=== PATIENT | female | born 1950 | race Caucasian/White ===

== ENCOUNTER 2017-04-16 05:15 | Inpatient (IN) | payer OTHER, MEDICARE ==
--- NOTE | 2017-04-15 12:50 | MH ---
cc: BHARGAVI HENDRICKSON DATE OF ADMISSION: 04/16/2017 ADMITTING DIAGNOSIS 1. Osteoarthritis of the left knee 2. Pain left knee HISTORY OF PRESENT ILLNESS The patient is a 66-year-old white female who has experienced pain of her left knee of greater than six years duration. She had noted the gradual onset of her symptoms unrelated to injury or unusual activity. She had undergone previous evaluation and treatment in the [place], [place] area which did include arthroscopic surgery. The patient reports that at that time her treatment included removal of a bone fragment from her left knee as well as being diagnosed as having an arthritic condition and potentially being a candidate for future total knee replacement. Follow up treatment did include at least one injection to her knee with no further disposition being completed. The patient thereafter continued to conform to conservative management alternating between Aleve and Motrin for pain management. With the passage of time, she became progressively more symptomatic with pain that became more of a constant discomfort involving the anterior aspect of her left knee with associated swelling for which she was having difficulty conforming to any extended weightbearing activities. She presented to the undersigned physician in February of this past year and, at that time, her x-ray studies did reveal obvious degenerative changes with pronounced narrowing throughout the medial compartment. Findings and treatment options were reviewed with the patient at that time. The pros and cons of continued conservative management versus operative intervention that would involve total knee arthroplasty were outlined. Emphasis was made regarding the fact that the decision to proceed with surgery would be left entirely to the patient's discretion. The patient readily admitted that she felt she had exhausted all modes of conservative management and was ready to proceed with a more definitive course of treatment as related to total knee replacement. She subsequently underwent medical evaluation and clearance by her primary care physician and returned to the office in follow-up disposition indicating her desire to proceed with treatment as had previously been discussed. In compliance with her wishes, she has currently been scheduled for admission in order that total knee arthroplasty be accomplished. PAST MEDICAL HISTORY, HOSPITALIZATIONS AND SURGERIES 1. Surgical excision of a lipoma of her right upper extremity. 2. Arthroscopic surgery of her left knee as described 3. Lumpectomy of the left breast x2 for a cancerous condition followed by radiation therapy. 4. Dupuytren's contracture release of the left hand 5. Removal of a fibroid mass of the right hand 6. Tonsillectomy, 7. Total abdominal hysterectomy, 8. Laparoscopic cholecystectomy, 9. Bilateral cataract excision, 10. Left vitrectomy 11. Colonoscopy 12. Medical management for diverticulitis. 13. Pneumonia and pleurisy of her left lung. Medical illnesses include 1. Borderline diabetes, 2. Migraine headaches 3. Hypertension. 4. History of sleep apnea but does not use C-PAP MEDICATIONS Current medications 1. Glimepiride 4 mg daily. 2. Paxil 20 mg daily. 3. Enalapril 20 mg twice daily. 4. Pravastatin 20 mg daily. 5. Citrical with D3 three times per week. 6. Vitamin C daily, 7. [place] three daily. 8. An antibiotic for a vaginal and rectal infection. ALLERGIES NALFON - CAUSED A HIVES LIKE REACTION TETRACYCLINE - CAUSED GASTRIC IRRITATION REVIEW OF SYSTEMS She wears glasses for reading purposes. There is a positive history of migraine headaches. No seizure or syncope. No sinus congestion. No epistaxis. Auditory acuity intact. No tinnitus. No bleeding gums or dysphagia. Denies cough, shortness of breath, upper respiratory infection. There is a history of pneumonia and pleurisy. No angina. She is medically managed for hypertension. Her appetite is good. bowel movements are regular. No hepatitis. She is status post cholecystectomy. No ulcers. No hemorrhoids. No urinary tract infection. No kidney stones. Fracture of the left little finger, right wrist and right foot all treated nonoperatively. No psychiatric illness. Her remaining review of systems is unremarkable and noncontributory. FAMILY HISTORY The patient has habitated with a significant other for more than 30 years and being 71 years of age and in good health. She has no children. Her family history is otherwise positive for hypertension, diabetes, congestive heart failure, asbestosis, obesity and breast and colon cancer. 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 She completed a bachelor's degree in elementary education. Denies active use of tobacco, ethanol consumption on a rare occasion. PHYSICAL EXAMINATION VITAL SIGNS: Height 5 feet 2 inches, weight 173 pounds. An alert, oriented and responsive 66-year-old white female who sits quietly upon the examination table with no obvious distress. HEENT: Pupils are equally round and reactive to light. Extraocular movements full. Sclerae clear. External nares clear. External auditory canals clear. Dental intact. Mucous membranes pink and moist. Pharynx clear. NECK: Supple. There is slight limitation of mobility at the extremes of rotation more pronounced to the left side that the patient indicates being chronic in nature. Carotid pulse palpable bilaterally. Trachea midline. Thyroid without enlargement. LUNGS: Clear to auscultation and percussion. No CVA tenderness. No discomfort throughout the dorsal lumbar spine. HEART: Regular rhythm. No murmur or gallop. ABDOMEN: Soft, nontender. Bowel sounds present. PELVIC: Per primary care physician. EXTREMITIES: Left knee - There is a mild fullness about the knee consistent with redundancy of soft tissue. No appreciable intra-articular effusion. Medial joint line tenderness. Apprehension and compression sign negative. Limited mobility towards the extremes of flexion without significant crepitation associated, no collateral ligamentous instability. Liu test and drawer sign negative. Pivot shift and Kaylah sign positive for medial compartment pain. Straight-leg raising unremarkable at 80 degrees, satisfactory mobility of the left hip with no associated pain. Mild antalgic gait. NEUROLOGIC: Cranial nerves II-XII grossly intact. IMPRESSION 1. Osteoarthritis of the left knee 2. Pain left knee PLAN Left total knee arthroplasty. The nature of the planned surgical procedure, the potential complications and risks associated, the expectations of surgery and the consent form were thoroughly reviewed with the patient in the presence of her sister prior to admission to the hospital. Rachel has indicated her full understanding regarding all of the above and given consent to proceed with treatment as outlined. Medical evaluation and clearance for surgery will be completed by her primary care physician at the [facility]. MD KARINA Davis/SA /4:44 PM /12:33 PM
[~2017-04-16] VITALS: Ht 157.5 cm; Wt 78.2 kg
[2017-04-16] MEDS ORDERED: ceFAZolin 2 GM PREMIX 50 ML IV SCH (05:45)
[2017-04-16] MEDS ORDERED: SODIUM CHLORID 0.9% 500 ML IV PRN (05:45)
[2017-04-16] MEDS ORDERED: POVIDONE IODINE 7.5% SCRUB 118 ML BOTTLE TOPICAL SCH (05:45)
[2017-04-16] MEDS ORDERED: POVIDONE IODINE 5% (ANTISEPSIS KIT) 4 APPLICATIONS EACH NARE PRN (05:45)
[2017-04-16] MEDS ORDERED: METOPROLOL TARTRATE 25 MG TAB PO PRN (05:45)
[2017-04-16] MEDS ORDERED: CHLORHEXIDINE GLUCONATE 2 % 1 PACK (2 CLOTHS) TOPICAL PRN (05:45)
[2017-04-16] MEDS ORDERED: LACTATED RINGER'S 1000 ML IV PRN (05:45)
[2017-04-16] MEDS ORDERED: ceFAZolin INJ 1,000 MG VIAL ONE ×2 (06:17→14:03)
[2017-04-16] MEDS ORDERED: CITRTAB7 PO (06:22)
[2017-04-16] MEDS ORDERED: PRAV20TA2 PO (06:22)
[2017-04-16] MEDS ORDERED: ENAL20TA PO (06:22)
[2017-04-16] MEDS ORDERED: VITA250T3 PO (06:22)
[2017-04-16] MEDS ORDERED: PAXI10TA8 PO (06:22)
[2017-04-16] MEDS ORDERED: OMEGCAP PO (06:22)
[2017-04-16] MEDS ORDERED: AMOX500T PO (06:22)
[2017-04-16] MEDS ORDERED: GLIM4TAB PO (06:22)
[2017-04-16] MEDS ORDERED: ACETAMINOPHEN 1000 MG/100 ML 100 ML IV ONE (06:31)
[2017-04-16] MEDS ORDERED: MIDAZOLAM HCL 2 MG/2 ML VIAL ONE (06:31)
[2017-04-16] MEDS ORDERED: FAMOTIDINE 20 MG/2 ML VIAL ONE (06:40)
[2017-04-16] MEDS ORDERED: TRANEXAMIC ACID 1 GM PRIOR TO PROCEDURE IV SCH ×2 (07:00)
[2017-04-16] MEDS ORDERED: HYDROmorphone HCL PF 2 MG/ML VIAL ONE (07:57)
[2017-04-16] MEDS ORDERED: BUPIVACAINE LIPOSOME PF 1.3% 20 ML VIAL ONE (08:57)
[2017-04-16] MEDS ORDERED: DEXT 5%-NACL 0.45% 1000 ML INJ 1,000 ML IV SCH (09:19)
[2017-04-16] MEDS ORDERED: DO NOT ADM ANY ANTICOAGULANT DRUGS PRN (09:24)
[2017-04-16] MEDS ORDERED: TRANEXAMIC ACID INJ 1,000 MG in SODIUM CHLORIDE 0.9% INJ 100 ML IV SCH (09:30)
[2017-04-16] MEDS ORDERED: TRANEXAMIC ACID 1 GM POST-OP IV SCH ×2 (10:00)
--- NOTE | 2017-04-16 10:35 | RADRPT ---
EXAM DATE/TIME: 04/16/2017 09:51 [facility] COMPARISON: No previous studies available for comparison. INDICATIONS : Post op left knee surgery. MEDICAL HISTORY : None. SURGICAL HISTORY : None. ENCOUNTER: Initial ACUITY: 1 day PAIN SCORE: 3/10 LOCATION: Left knee. FINDINGS: AP and lateral views of the knee following arthroplasty reveals a prosthesis in anatomic alignment. F racture is not appreciated. Surgical drain is evident CONCLUSION: Status post total knee arthroplasty. Maciel Marquez MD FACR Board Certified Radiologist. This report was verified electronically.
[2017-04-16] MEDS ORDERED: DEXTROSE 50% IN WATER 50 ML VIAL(D50) IV PUSH PRN ×2 (10:45→15:45)
[2017-04-16] MEDS ORDERED: diphenhydrAMINE HCL 25 MG CAP PO PRN (10:45)
[2017-04-16] MEDS ORDERED: GLUCAGON 1 MG/ML VIAL OTHER PRN ×2 (10:45→15:45)
[2017-04-16] MEDS ORDERED: NALOXONE HCL 0.4 MG/ML AMP IV PUSH PRN (10:45)
[2017-04-16] MEDS: SODIUM CHLOR 0.9% 1000 ML INJ 1,000 ML IV SCH ×2 (10:45→22:59)
[2017-04-16] MEDS ORDERED: ACETAMINOPHEN 325 MG TAB PO PRN (10:45)
[2017-04-16 10:53] LABS: AUTOMATED NEUTROPHIL # 8.7 TH/MM3 (1.8-7.7); BASOPHIL # 0.1 TH/MM3 (0-0.2); BASOPHIL % 0.5 % (0.0-2.0); EOSINOPHIL # 0.2 TH/MM3 (0-0.4); EOSINOPHIL % 1.4 % (0.0-4.0); HEMATOCRIT 39.9 % (35.0-46.0); HEMOGLOBIN 13.6 GM/DL (11.6-15.3); LYMPH % 19.7 % (9.0-44.0); LYMPHOCYTE # 2.3 TH/MM3 (1.0-4.8); MEAN CELL VOLUME 96.3 FL (80.0-100.0); MEAN CORPUSCULAR HEMOGLOBIN 32.8 PG (27.0-34.0); MEAN PLATELET VOLUME 8.2 FL (7.0-11.0); MONO % 4.5 % (0.0-8.0); MONOCYTE # 0.5 TH/MM3 (0-0.9); NEUT % 73.9 % (16.0-70.0); PLATELET COUNT 285 TH/MM3 (150-450); RED BLOOD COUNT 4.14 MIL/MM3 (4.00-5.30); RED CELL DISTRIBUTION WIDTH 13.3 % (11.6-17.2); WHITE BLOOD COUNT 11.8 TH/MM3 (4.0-11.0)
[2017-04-16] MEDS ORDERED: DOCUSATE SODIUM 100 MG CAP PO PRN (11:00)
[2017-04-16] MEDS ORDERED: Post-op Orders (for Pharmacy) XX ONE (11:00)
--- NOTE | 2017-04-16 11:06 | MP ---
cc: BHARGAVI JACKSON DATE OF SURGERY 04/16/2017 PREOPERATIVE DIAGNOSIS Osteoarthritis of the left knee, pain left knee. POSTOPERATIVE DIAGNOSIS Osteoarthritis of the left knee, pain left knee. PROCEDURE Left total knee arthroplasty SURGEON Bhargavi Jackson MD ANESTHESIA General endotracheal INDICATIONS This is a 66-year-old white female with a six-year history of left knee pain of gradual onset unrelated to injury or unusual activity. She had undergone previous evaluation and treatment while she was living in the [place], [place] area which included arthroscopic surgery. The patient reports that at that time her treatment included removal of a bone fragment from her left knee, as well as being diagnosed as having an arthritic condition and potentially being a candidate for future total knee replacement. Follow up treatment did include at least one injection to her knee with no further disposition being completed. The patient continued to conform to conservative management alternating between Aleve and Motrin for pain management. With the passage of time, she became progressively more symptomatic with pain described as a constant discomfort about the anterior aspect of the left knee with associated swelling for which she was having difficulty conforming to extended weightbearing activities. She presented to the undersigned physician in February of this past year and at that time her x-ray studies revealed obvious degenerative changes with pronounced narrowing throughout the medial compartment. Findings and treatment options were reviewed. The pros and cons of continuing with conservative management versus operative intervention that would involve a total knee arthroplasty were outlined in detail. Emphasis was made regarding the fact that the decision to proceed with surgery will be left entirely to the patient's discretion. The patient readily admitted that she felt she had exhausted all modes of conservative management and was ready to proceed with a more definitive course of treatment as related to surgery as noted above. She completed medical evaluation and clearance by her primary care physician and returned to the office in follow-up disposition indicating she was ready to proceed with surgery as discussed. In compliance with her wishes, she was scheduled for admission at this time in order that the above be accomplished. FORMAT Following the induction of satisfactory general anesthesia by endotracheal intubation as completed per the Department of Anesthesia, a tourniquet was established around the proximal portion of the left lower extremity. The extremity proper was isolated with a U drape thereafter being prepped with Betadine solution and draped into a sterile field in the routine manner. Prior to initiation of the actual procedure, the standard time-out protocol was completed. All parameters were appropriately addressed and confirmed by operating room personnel. The extremity was elevated for approximately one minute and the tourniquet thus inflated to 250 mmHg pressure. A sharp skin incision was initiated midline over the anterior aspect of the knee and developed through underlying subcutaneous tissue with hemostasis maintained by electrocautery. By deepening dissection, the anterior capsule was exposed. A medial capsulotomy completed and the patella subluxed in a lateral orientation. Examination of the joint space revealed significant degenerative changes being most pronounced about the medial compartment where there was complete erosion of articular cartilage and subchondral bone exposed. Degenerative changes extended throughout the patellofemoral articulation into the lateral compartment. The articular surface of the patella was resected. The three hole guide was utilized for establishing post holes. Medial and lateral meniscus structures were sharply excised as was the anterior cruciate ligament. A centering hole was placed in the distal aspect of the femur allowing positioning of the intramedullary guide. The distal femoral cutting jig was attached and the distal femur resected. AP measurement noted 62.5 mm sizing to be appropriate. The matching cutting block was positioned. Anterior, posterior, and chamfer cuts were completed. The tibial plateau was thereafter subluxed in an anterior orientation allowing positioning of the extramedullary guide. The tibial plateau was resected and measured with 67 mm sizing determined to be appropriate. A trial reduction followed utilizing a 62.5 mm anatomic femoral component, a 67 mm tibial base with 10, 12 and 14 mm bearing inserts trialed in a sequential fashion. The 14-mm thickness determined to be the more favorable fit. The knee was readily brought to full extension. There was no laxity to varus/valgus stress at both 0 and 90 degrees flexed posture. Orientation was confirmed as being an appropriate measurement with the pelvic guide through the mechanical axis of the knee. A trial reduction followed utilizing a 31 mm patellar button. Once again, good tracking noted with no tendency toward subluxation. All trial components being removed, the remaining portion of the proximal tibia was prepared for insertion of the permanent component. The joint space was thoroughly lavaged with pulsating antibiotic solution. Hemostasis maintained by electrocautery. An autogenous bone plug was inserted into the distal femoral guide hole and thereafter a preparation of Palacos bone cement was utilized in inserting knee components in a sequential fashion which included a 67 mm fixed cruciate tibial plate to which a 14 mm Vanguard tibial bearing insert was secured with locking purcell. The 62.5 mm Vanguard femoral component was firmly seated onto the distal femur, excess cement being removed, the knee was brought to full extension and thereafter the 31 mm standard three post patellar button was attached and maintained in place with patellar clamp while cement hardening was completed. Final range of motion assessment noted good tracking and stability throughout the knee. Irrigation was repeated with hemostasis maintained. Autovac drain tubes were inserted through superior stab wounds. The capsule was repaired with 0 Vicryl suture. The remaining portion of the wound was closed in layers in the routine manner, skin margins being reapproximated with a running subcuticular 3-0 Vicryl suture over which Steri-Strips were applied. Xeroform gauze and a bulky dry sterile dressing were placed. Tourniquet deflated after 47 minutes of tourniquet time, the extremity being supported in a canvas knee splint. Anesthesia was discontinued. She was thereafter transferred to a hospital bed and returned to the recovery room in satisfactory condition having tolerated her operative procedure well. Estimated blood loss was approximately 150 cc as determined per anesthesia. 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 MD KARINA Davis/ESTEFANIA /9:09 AM /10:31 AM
[2017-04-16 11:17] LABS: BICARBONATE 25.5 MEQ/L (21.0-32.0); CALCIUM 8.2 MG/DL (8.5-10.1); CREATININE 1.02 MG/DL (0.50-1.00)
[2017-04-16] MEDS ORDERED: PROPOFOL 200 MG/20 ML AMP IV ONE (12:00)
[2017-04-16] MEDS ORDERED: KETOROLAC TROMETHAMINE 30 MG/ML (IVP) VIAL IV PUSH ONE (12:00)
[2017-04-16] MEDS ORDERED: GLYCOPYRROLATE 1 MG/5 ML SYRINGE IV PUSH ONE (12:00)
[2017-04-16] MEDS ORDERED: NEOSTIGMINE 5 MG/5 ML SYRINGE IV PUSH ONE (12:00)
[2017-04-16] MEDS ORDERED: ROCURONIUM INJ 50 MG/5 ML SYRINGE IV PUSH ONE (12:00)
[2017-04-16] MEDS ORDERED: LIDOCAINE HCL 1% PF 5 ML SYRINGE OTHER ONE (12:00)
[2017-04-16] MEDS ORDERED: INSULIN NovoLIN REGULAR SUPPLEMENTAL SCALE SQ SCH (12:00)
[2017-04-16] MEDS ORDERED: ONDANSETRON HCL 4 MG/2 ML VIAL IV ONE (12:00)
[2017-04-16] MEDS ORDERED: ESMOLOL HCL 100 MG/10 ML VIAL IV ONE (12:00)
[2017-04-16] MEDS ORDERED: LACTATED RINGER'S 1000 ML INJ 1,000 ML IV ONE (12:00)
[2017-04-16] MEDS ORDERED: ePHEDrine/NS 25 MG/5 ML SYRINGE IV ONE (12:00)
[2017-04-16] MEDS: PCA - TOTAL MG MORPHINE DELIVERED PER SHIFT SCH ×2 (14:00→22:00)
[2017-04-16] MEDS: ONDANSETRON HCL 4 MG/2 ML VIAL IVP PRN (15:11)
[2017-04-16] MEDS: MORPHINE SULFATE 30 MG/30 ML PCA IV SCH (15:18)
[2017-04-16 16:00] VITALS: BP 123/61; PULSE 80; RESP 17; TEMP 96.5; O2SAT 96
[2017-04-16] MEDS: INSULIN NovoLIN REGULAR SUPPLEMENTAL SCALE SQ SCH ×2 (17:56→21:05)
[2017-04-16 20:05] VITALS: BP 134/68; PULSE 86; RESP 18; TEMP 98.8; O2SAT 95
--- NOTE | 2017-04-16 20:45 | PD.CONS ---
HPI Service [facility] Hospitalists Consult Requested By Ortho Reason for Consult Medical management Primary Care Physician No Primary Care Physician Diagnoses: History of Present Illness [age]6 to 6 years old female admitted under ortho service for left total knee arthroplasty, hospitalist service consulted to see the patient for medical management, patient reported having hypertension diabetes mellitus migraine hyperlipidemia, patient seen postop she was doing well no chest pain or short of breath no abdominal pain diarrhea constipation dysuria urgency or frequency Review of Systems All systems reviewed and was positive for what is mentioned in history of present illness otherwise negative Past Family Social History Allergies: Coded Allergies: fenoprofen (Verified Allergy, Severe, hives, 04/16/17) tetracycline (Verified Allergy, Severe, gastric irritation, 04/16/17) Past Medical History 1. Surgical excision of a lipoma of her right upper extremity. 2. Arthroscopic surgery of her left knee as described 3. Lumpectomy of the left breast x2 for a cancerous condition followed by radiation therapy. 4. Dupuytren's contracture release of the left hand 5. Removal of a fibroid mass of the right hand 6. Tonsillectomy, 7. Total abdominal hysterectomy, 8. Laparoscopic cholecystectomy, 9. Bilateral cataract excision, 10. Left vitrectomy 11. Colonoscopy 12. Medical management for diverticulitis. 13. Pneumonia and pleurisy of her left lung. Medical illnesses include 1. Borderline diabetes, 2. Migraine headaches 3. Hypertension. 4. History of sleep apnea but does not use C-PAP Past Surgical History As above Family History Mother had a breast and colon cancer Social History Denied tobacco alcohol or illicit drug abuse Physical Exam Vital Signs Vital Signs Date Time Temp Pulse Resp B/P (MAP) Pulse Ox O2 Delivery O2 Flow Rate FiO2 04/16/17 16:00 96.5 80 17 123/61 (81) 96 04/16/17 15:18 16 04/16/17 14:00 85 14 99/61 (74) 97 Nasal Cannula 3 04/16/17 13:00 86 14 91/50 (64) 96 Nasal Cannula 3 04/16/17 12:00 81 14 110/53 (72) 95 Nasal Cannula 3 04/16/17 11:45 90 14 169/78 (108) 95 Nasal Cannula 3 04/16/17 11:30 87 14 128/57 (80) 95 Nasal Cannula 3 04/16/17 11:15 84 14 115/54 (74) 95 Nasal Cannula 3 04/16/17 11:00 80 14 125/56 (79) 93 Nasal Cannula 3 04/16/17 10:45 81 14 123/59 (80) 95 Nasal Cannula 3 04/16/17 10:30 82 14 131/59 (83) 94 Nasal Cannula 3 04/16/17 10:15 86 14 133/60 (84) 95 Nasal Cannula 3 04/16/17 10:00 85 14 115/56 (75) 96 Nasal Cannula 3 04/16/17 09:45 85 14 123/55 (77) 93 Nasal Cannula 3 04/16/17 09:29 97.6 95 14 142/74 (96) 95 Nasal Cannula 3 04/16/17 05:45 97.8 74 16 149/78 (101) 95 Physical Exam GENERAL: This is a well-nourished, well-developed patient, in no apparent distress. SKIN: No rashes, warm and dry HEAD: Atraumatic. Normocephalic. EYES: Pupils equal round and reactive. Extraocular motions intact. No scleral icterus. ENT: Nose without bleeding, or drainage, Airway patent. NECK: Trachea midline. Supple CARDIOVASCULAR: Regular rate and rhythm without murmurs, gallops, or rubs. RESPIRATORY: Fair air entry bilaterally. No wheezes, rales, or rhonchi. GASTROINTESTINAL: Abdomen soft, non-tender, nondistended. Positive bowel sounds MUSCULOSKELETAL: Extremities without clubbing, cyanosis, or edema. Pedal pulses appreciated NEUROLOGICAL: Awake and alert. Moves all extremity. Normal speech.no focal neurological deficit Laboratory Laboratory Tests Test 04/16/17 10:25 White Blood Count 11.8 Red Blood Count 4.14 Hemoglobin 13.6 Hematocrit 39.9 Mean Corpuscular Volume 96.3 Mean Corpuscular Hemoglobin 32.8 Mean Corpuscular Hemoglobin Concent 34.0 Red Cell Distribution Width 13.3 Platelet Count 285 Mean Platelet Volume 8.2 Neutrophils (%) (Auto) 73.9 Lymphocytes (%) (Auto) 19.7 Monocytes (%) (Auto) 4.5 Eosinophils (%) (Auto) 1.4 Basophils (%) (Auto) 0.5 Neutrophils # (Auto) 8.7 Lymphocytes # (Auto) 2.3 Monocytes # (Auto) 0.5 Eosinophils # (Auto) 0.2 Basophils # (Auto) 0.1 CBC Comment DIFF FINAL Differential Comment Blood Urea Nitrogen 15 Creatinine 1.02 Random Glucose 210 Calcium Level 8.2 Sodium Level 139 Potassium Level 4.0 Chloride Level 103 Carbon Dioxide Level 25.5 Anion Gap 11 Estimat Glomerular Filtration Rate 54 Result Diagram: 04/16/17 1025 04/16/17 1025 Imaging Last Impressions Knee X-Ray 04/16/17 0919 Signed Impressions: Service Date/Time: Sunday, April 16, 2017 09:51 - CONCLUSION: Status post total knee arthroplasty. Maciel Marquez MD Assessment and Plan Assessment and Plan 66 years old female admitted under ortho service for left total hip arthroplasty hospitalist service consulted for medical management Diabetes mellitus2 Hypertension History of migraine Hyperlipidemia Osteoarthritis DVT prophylaxis patient to be on Xarelto per ortho Recommendation: Apply Accu-Chek with insulin sliding scale, hold glimepiride Check A1c Check BMP to evaluate renal function Continue home meds for statin and migraine Hold aspirin until cleared by surgery to be resumed, continue paroxetine, Xarelto for DVT prophylaxis per ortho Thank you for this consultation Discussed Condition With Patient Trish Hall MD Apr 16, 2017 20:45
[2017-04-16] MEDS ORDERED: ZOLPIDEM TARTRATE 5 MG TAB PO PRN (21:00)
[2017-04-17] VITALS (7 sets, daily range): BP systolic 122–153; BP diastolic 60–72; PULSE 84–98; RESP 17–19; TEMP 98.2–99.9; O2SAT 92–96
[2017-04-17] MEDS: MORPHINE SULFATE 30 MG/30 ML PCA IV SCH (05:07)
[2017-04-17] MEDS: PCA - TOTAL MG MORPHINE DELIVERED PER SHIFT SCH ×3 (06:00→22:00)
[2017-04-17] MEDS ORDERED: ASPI-183 PO (06:19)
[2017-04-17] MEDS ORDERED: HYDR-3516 PO (06:19)
--- NOTE | 2017-04-17 06:21 | HHI.FF ---
Face to Face Verification Diagnosis: (1) DJD (degenerative joint disease) of knee Physical Therapy Gait training Knee: Total knee, Protocol: Left, Full weight bearing Left LE Weight Bearing: WB as tolerated Left LE Range of Motion: Active ROM Nursing Dressing Changes: Daily dressing change I have seen patient Rachel Busby on 04/17/17. My clinical findings support the need for the requested home health care services because: Limited ability to care for self High risk of falls I certify that my clinical findings support that this patient is homebound because: Post-op weakness Unsteady gait/balance Unsafe to leave home unassisted Nic Jackson MD Apr 17, 2017 06:21
[2017-04-17] MEDS ORDERED: WALKER WHEELS/F1 MIS (06:23)
[2017-04-17 06:59] LABS: HEMATOCRIT 32.7 % (35.0-46.0)
[2017-04-17] MEDS: SODIUM CHLOR 0.9% 1000 ML INJ 1,000 ML IV SCH ×2 (08:26→22:30)
[2017-04-17] MEDS: RIVAROXABAN 10 MG TAB PO SCH (08:26)
[2017-04-17] MEDS: INSULIN NovoLIN REGULAR SUPPLEMENTAL SCALE SQ SCH ×4 (08:33→21:39)
[2017-04-17] MEDS: ACETAMINOPHEN/HYDROcodone 325 MG/5 MG TAB PO PRN ×4 (12:27→23:57)
--- NOTE | 2017-04-17 17:11 | HHI.PR ---
Subjective Remarks Resting in bed, denied any chest pain short of breath, or any other pain except her leg Objective Vitals Vital Signs Date Time Temp Pulse Resp B/P (MAP) Pulse Ox O2 Delivery O2 Flow Rate FiO2 04/17/17 15:18 92 21 04/17/17 12:28 18 04/17/17 12:00 98.2 84 18 124/70 (88) 94 04/17/17 08:00 99.1 89 18 122/60 (80) 92 04/17/17 07:58 96 04/17/17 06:00 18 04/17/17 05:15 18 04/17/17 05:07 18 04/17/17 04:20 99.9 97 19 144/63 (90) 92 04/17/17 00:25 98.8 98 19 145/62 (89) 92 04/16/17 22:00 18 04/16/17 20:05 98.8 86 18 134/68 (90) 95 I/O 04/16/17 04/16/17 04/16/17 04/17/17 04/17/17 04/17/17 07:00 15:00 23:00 07:00 15:00 23:00 Intake Total 2040 ml 1848 ml 886 ml 607 ml Output Total 150 ml 145 ml 75 ml Balance 1890 ml 1848 ml 741 ml 532 ml Intake Oral 640 ml 840 ml 360 ml 500 ml IV Total 1008 ml 526 ml 107 ml Other 1400 ml Output Drainage Total 145 ml 75 ml Estimated Blood Loss 150 ml # Voids 2 3 3 # Bowel Movements 0 0 Result Diagram: 04/17/17 0604 04/16/17 1025 Objective Remarks GENERAL: This is a well-nourished, well-developed patient, in no apparent distress. SKIN: No rashes, warm and dry HEAD: Atraumatic. Normocephalic. EYES: Pupils equal round and reactive. Extraocular motions intact. No scleral icterus. ENT: Nose without bleeding, or drainage, Airway patent. NECK: Trachea midline. Supple CARDIOVASCULAR: Regular rate and rhythm without murmurs, gallops, or rubs. RESPIRATORY: Fair air entry bilaterally. No wheezes, rales, or rhonchi. GASTROINTESTINAL: Abdomen soft, non-tender, nondistended. Positive bowel sounds MUSCULOSKELETAL: Extremities without clubbing, cyanosis, or edema. Pedal pulses appreciated NEUROLOGICAL: Awake and alert. Moves all extremity. Normal speech.no focal neurological deficit A/P Assessment and Plan 66 years old female admitted under ortho service for left total hip arthroplasty hospitalist service consulted for medical management TYLER versus CKD with ranitidine 1.02, GFR 56 Acute postop anemia hemoglobin dropped from 13.6-11>> monitor H&H Diabetes mellitus2 Hypertension History of migraine Hyperlipidemia Osteoarthritis DVT prophylaxis patient to be on Xarelto per ortho Recommendation: Apply Accu-Chek with insulin sliding scale, hold glimepiride A1c pending Strict I&O, avoid nephrotoxin, BMP in a.m., encourage fluid oral intake, patient told me she is drinking enough water and I saw few water bottles next to her that Continue home meds for statin and migraine Hold aspirin until cleared by surgery to be resumed, continue paroxetine, Xarelto for DVT prophylaxis per ortho Trish Hall MD Apr 17, 2017 17:11
[2017-04-17 18:42] LABS: HEMOGLOBIN A1C 5.6 % (4.3-6.0)
[2017-04-17] MEDS: ONDANSETRON HCL 4 MG/2 ML VIAL IVP PRN (21:42)
[2017-04-18] VITALS (7 sets, daily range): BP systolic 100–140; BP diastolic 59–71; PULSE 78–91; RESP 17–19; TEMP 96.8–99; O2SAT 92–95
[2017-04-18] MEDS: ACETAMINOPHEN/HYDROcodone 325 MG/5 MG TAB PO PRN ×3 (05:12→14:52)
[2017-04-18] MEDS: PCA - TOTAL MG MORPHINE DELIVERED PER SHIFT SCH ×2 (06:00→14:00)
[2017-04-18 08:03] LABS: AUTOMATED NEUTROPHIL # 5.8 TH/MM3 (1.8-7.7); BASOPHIL % 0.4 % (0.0-2.0); EOSINOPHIL # 0.1 TH/MM3 (0-0.4); EOSINOPHIL % 1.4 % (0.0-4.0); HEMATOCRIT 29.1 % (35.0-46.0); HEMOGLOBIN 9.8 GM/DL (11.6-15.3); LYMPH % 15.8 % (9.0-44.0); LYMPHOCYTE # 1.3 TH/MM3 (1.0-4.8); MEAN CELL VOLUME 86.2 FL (80.0-100.0); MEAN CORPUSCULAR HEMOGLOBIN 29.1 PG (27.0-34.0); MEAN CORPUSCULAR HGB CONC 33.7 % (32.0-36.0); MEAN PLATELET VOLUME 7.4 FL (7.0-11.0); MONO % 11.7 % (0.0-8.0); NEUT % 70.7 % (16.0-70.0); PLATELET COUNT 180 TH/MM3 (150-450); RED BLOOD COUNT 3.37 MIL/MM3 (4.00-5.30); RED CELL DISTRIBUTION WIDTH 13.7 % (11.6-17.2); WHITE BLOOD COUNT 8.1 TH/MM3 (4.0-11.0)
[2017-04-18 08:30] LABS: BICARBONATE 28.8 MEQ/L (21.0-32.0); CALCIUM 8.1 MG/DL (8.5-10.1); CREATININE 0.66 MG/DL (0.50-1.00)
[2017-04-18] MEDS: RIVAROXABAN 10 MG TAB PO SCH (09:07)
[2017-04-18] MEDS: PRAVASTATIN SOD 20 MG TAB PO SCH (09:07)
[2017-04-18] MEDS: PARoxetine HCL 20 MG TAB PO SCH (09:07)
[2017-04-18] MEDS: INSULIN NovoLIN REGULAR SUPPLEMENTAL SCALE SQ SCH ×4 (09:08→21:30)
--- NOTE | 2017-04-18 09:59 | HHI.PR ---
Subjective Remarks Follow up renal insufficiency, diabetes. Patient states that her pain is well controlled. She has not had a bowel movement. Denies chest pain or dyspnea. No nausea or vomiting. Objective Vitals Vital Signs Date Time Temp Pulse Resp B/P (MAP) Pulse Ox O2 Delivery O2 Flow Rate FiO2 04/18/17 07:40 97.9 78 19 115/59 (77) 92 04/18/17 06:00 16 04/18/17 00:15 99.0 89 17 139/67 (91) 93 04/17/17 22:00 18 04/17/17 20:25 99.0 86 17 153/72 (99) 94 04/17/17 15:18 92 21 04/17/17 12:28 18 04/17/17 12:00 98.2 84 18 124/70 (88) 94 I/O 04/17/17 04/17/17 04/17/17 04/18/17 04/18/17 04/18/17 06:59 14:59 22:59 06:59 14:59 22:59 Intake Total 886 ml 607 ml 480 ml 360 ml Output Total 145 ml 75 ml 30 ml Balance 741 ml 532 ml 450 ml 360 ml Intake Oral 360 ml 500 ml 480 ml 360 ml IV Total 526 ml 107 ml Output Drainage Total 145 ml 75 ml 30 ml # Voids 3 3 2 2 # Bowel Movements 0 0 0 Result Diagram: 04/18/17 0700 04/18/17 0700 Imaging Last Impressions Knee X-Ray 04/16/17 09 Signed Impressions: Service Date/Time: Sunday, April 16, 2017 09:51 - CONCLUSION: Status post total knee arthroplasty. Maciel Marquez MD Objective Remarks General: Elderly female in no acute distress. Heart: Regular rate and rhythm. No murmur. Lungs: Clear to auscultation bilaterally. No wheezes, rales, or rhonchi. Breathing is nonlabored. Abdomen: Soft, nontender, nondistended. Positive bowel sounds. Extremities: No lower extremity edema. Psych: Alert and oriented. Procedures Left total hip arthroplasty Urinary Catheter: No Vascular Central Line Catheter: No A/P Assessment and Plan 1. Osteoarthritis, left hip: Status post left total hip arthroplasty. Management per orthopedic surgery. 2. Acute kidney injury: Improved. Patient advised to continue oral hydration. 3. Acute postop anemia: H&H trending down. Monitor labs. 4. Diabetes mellitus type 2: Monitor Accu-Cheks and cover with sliding scale insulin. Restart glimepiride. 5. Hypertension: Continue home medications. 6. Hyperlipidemia: Continue statin. 7. DVT prophylaxis: Xarelto. Discharge Planning Per orthopedic surgery. Arjun Shell MD Apr 18, 2017 09:59
[2017-04-18] MEDS: SODIUM CHLOR 0.9% 1000 ML INJ 1,000 ML IV SCH ×2 (10:25→22:20)
[2017-04-18] MEDS ORDERED: MISCELLANEOUS PHARMACY INFORMATION XX ONE (11:00)
[2017-04-18] MEDS: GLIMEPIRIDE 4 MG TAB PO SCH (11:00)
[2017-04-18] MEDS: ONDANSETRON HCL 4 MG/2 ML VIAL IVP PRN (11:54)
[2017-04-19] VITALS: BP 151/77; PULSE 88; RESP 20; TEMP 99; O2SAT 96
[2017-04-19] MEDS: ACETAMINOPHEN/HYDROcodone 325 MG/5 MG TAB PO PRN ×3 (00:30→13:29)
[2017-04-19 06:47] LABS: AUTOMATED NEUTROPHIL # 4.2 TH/MM3 (1.8-7.7); BASOPHIL % 0.3 % (0.0-2.0); EOSINOPHIL # 0.1 TH/MM3 (0-0.4); EOSINOPHIL % 1.7 % (0.0-4.0); HEMATOCRIT 28.8 % (35.0-46.0); HEMOGLOBIN 9.4 GM/DL (11.6-15.3); LYMPH % 21.2 % (9.0-44.0); LYMPHOCYTE # 1.4 TH/MM3 (1.0-4.8); MEAN CELL VOLUME 85.9 FL (80.0-100.0); MEAN CORPUSCULAR HEMOGLOBIN 28.2 PG (27.0-34.0); MEAN CORPUSCULAR HGB CONC 32.9 % (32.0-36.0); MEAN PLATELET VOLUME 7.7 FL (7.0-11.0); MONO % 11.6 % (0.0-8.0); MONOCYTE # 0.7 TH/MM3 (0-0.9); NEUT % 65.2 % (16.0-70.0); PLATELET COUNT 193 TH/MM3 (150-450); RED BLOOD COUNT 3.35 MIL/MM3 (4.00-5.30); RED CELL DISTRIBUTION WIDTH 13.6 % (11.6-17.2); WHITE BLOOD COUNT 6.4 TH/MM3 (4.0-11.0)
[2017-04-19 07:06] LABS: BICARBONATE 31.9 MEQ/L (21.0-32.0); CALCIUM 8.3 MG/DL (8.5-10.1); CREATININE 0.79 MG/DL (0.50-1.00)
[2017-04-19 08:00] VITALS: BP 143/76; PULSE 85; RESP 18; TEMP 98.7; O2SAT 94
[2017-04-19] MEDS: INSULIN NovoLIN REGULAR SUPPLEMENTAL SCALE SQ SCH ×2 (08:58→12:41)
[2017-04-19] MEDS: PRAVASTATIN SOD 20 MG TAB PO SCH (08:58)
[2017-04-19] MEDS: RIVAROXABAN 10 MG TAB PO SCH (08:58)
[2017-04-19] MEDS: PARoxetine HCL 20 MG TAB PO SCH (08:59)
[2017-04-19] MEDS: GLIMEPIRIDE 4 MG TAB PO SCH (08:59)
[2017-04-19] MEDS: SODIUM CHLOR 0.9% 1000 ML INJ 1,000 ML IV SCH (08:59)
[2017-04-19 12:00] VITALS: BP 157/74; PULSE 87; RESP 18; TEMP 98.7; O2SAT 95
--- NOTE | 2017-04-20 19:21 | MD ---
cc: ELIESER HENDRICKSONAN ADMISSION DATE: 04/16/2017 DISCHARGE DATE: 04/19/2017 ADMISSION DIAGNOSIS: 1. Osteoarthritis of the left knee. 2. Pain left knee. DISCHARGE DIAGNOSIS: 1. Osteoarthritis of the left knee. 2. Pain left knee. HISTORY: A 66-year-old white female with left knee pain of greater than six years duration of gradual onset unrelated to injury or unusual activity who had undergone previous evaluation while living in the [place], [place] area where she completed arthroscopic surgery. At that time, her treatment included removal of a bone fragment as well as being diagnosed as having arthritic condition and potentially being a candidate for future total knee replacement. Following treatment, the patient did receive at least one injection to her knee for further disposition and thereafter continued to conform to conservative management alternating between Aleve and Motrin for pain management. With the passage of time, she became progressively more symptomatic with pain with it being more of a constant discomfort associated with swelling for which she was having difficulty conforming to all weightbearing activities. She presented to the undersigned physician in February of this past year and at that time her x-ray studies did reveal obvious degenerative changes with pronounced narrowing throughout the medial compartment. Findings and treatment options were reviewed. The pros and cons of continuing with conservative management versus operative intervention that would involve total knee arthroplasty were outlined. Emphasis was made regarding the fact that the decision to proceed with surgery would be left entirely to the patient's discretion. The patient readily admitted that she had exhausted all modes of conservative intervention and was ready to proceed with surgery as discussed, and in compliance with her wishes, she was scheduled for admission at this time in order that the above be accomplished. Her physical examination revealed mild fullness about the left knee consistent with redundancy of soft tissue. There was no appreciable intra-articular effusion or medial joint line tenderness. Apprehension and compression signs negative. Limited mobility towards the extreme of flexion without significant crepitation. No collateral ligamentous instability. Liu test and draw signs negative. Pivot shift and Kaylah sign positive for medial compartment pain. Straight-leg raising unremarkable at 80 degrees. Satisfactory mobility of the left hip with no associated pain. Antalgic gait. HOSPITAL COURSE: Prior to admission to the hospital, the patient had undergone medical evaluation and clearance for surgery as completed by her primary care physician at the [facility]. She was taken to the operating room on 16 April 2017 and on that date underwent a left total knee arthroplasty completed in an uncomplicated manner. The patient was noted to have tolerated her operative procedure well. Her postoperative course was stable thereafter. Hemoglobin/hematocrit assessment postoperatively was 11 and 32.7, respectively. The patient was progressively mobilized under the guidance of physical therapy being permitted weightbearing to tolerance about the left lower extremity. Follow up examination of her surgical wound noted it to be intact and healing favorably with no evidence of infection. Medical followup per the hospitalist service. DVT prophylaxis initiated. social worker health services was consulted to assist with discharge planning. The patient had indicated her preference to be discharged to a rehab facility for continued mobilization upon discharge from the hospital. Plans were finalized in this regard through the Social Service Department and pending medical clearance, she was scheduled for transfer on the third postoperative day at which time she was making steady progress with regards to her rehab program. She was scheduled be seen in office followup in approximately four weeks. Her condition at the time of discharge was stable. Prognosis favorable. MEDICATIONS: Discharge medications included: 1. Hydrocodone 5/325 #60. 2. Aspirin 325 mg one tablet twice daily for three weeks #40. MD KARINA Davis/DANI /6:27 AM /7:07 PM
== END 2017-04-19 14:08 | disposition home health service (06) | DRG 470 ==
LOC: HSDI 05:15 → N06B 14:46
PROVIDERS: ADMIT Orthopaedic Surgery; ATTEND Orthopaedic Surgery
PROC: 3E0T3BZ Introduction of Anesthetic Agent into Peripheral Nerves and Plexi, Percutaneous Approach (ICD-10-PCS; 2017-04-16)
PROC: 0SRD0J9 Replacement of Left Knee Joint with Synthetic Substitute, Cemented, Open Approach (ICD-10-PCS; principal; 2017-04-16 06:49)
DX: M17.12 Unilateral primary osteoarthritis, left knee (principal); N17.9 Acute kidney failure, unspecified; I10 Essential (primary) hypertension; E78.5 Hyperlipidemia, unspecified; E11.9 Type 2 diabetes mellitus without complications; D64.9 Anemia, unspecified; G43.909 Migraine, unspecified, not intractable, without status migrainosus; Z92.3 Personal history of irradiation; Z79.84 Long term (current) use of oral hypoglycemic drugs; Z88.1 Allergy status to other antibiotic agents; Z88.8 Allergy status to other drugs, medicaments and biological substances
CPT/HCPCS: 73560; 80048; 82948; 83036; 85014; 85018; 85025; 86850; 86900; 86901; 88305; 94150; C1776; C9290; J0131; J0690; J1170; J1885; J2250; J2270; J2405; J2710; J3010; J7030; J7120; L1830